=== PATIENT | female | born 1990 | race Two or more races ===

== ENCOUNTER 2017-01-25 08:15 | Emergency (ER) | payer OTHER ==
--- NOTE | 2017-01-25 09:43 | ER Document Report ---
ED General - General Chief Complaint: Allergic Reaction Stated Complaint: POSSIBLE ALLERGIC REACTION Time Seen by Provider: 01/25/17 08:46 Mode of Arrival: Ambulatory Information source: Patient Notes: 26-year-old female presents with complaints of left facial swelling after taking penicillin. Patient notes she was diagnosed with a dental infection of the left upper jaw. Denies any fevers or chills denies any specific tenderness of the facial swelling. Patient has taken 3 doses of penicillin thus far. She denies any history of penicillin allergies in the past TRAVEL OUTSIDE OF THE [place] IN LAST 30 DAYS: No - HPI Onset: Just prior to arrival Onset/Duration: Sudden Quality of pain: No pain Severity: Mild Pain Level: Denies Associated symptoms: Other - Facial swelling Exacerbated by: Denies Relieved by: Denies Similar symptoms previously: No Recently seen / treated by doctor: No - Related Data Allergies/Adverse Reactions: No Known Allergies Allergy (Verified 01/25/17 08:20) Home Medications: Current Home Medications Penicillin V Potassium [Penicillin Vk 500 mg Tablet] 500 mg PO QID 01/25/17 [ History] Past Medical History - Social History Smoking Status: Never Smoker Cigarette use (# per day): No Chew tobacco use (# tins/day): No Smoking Education Provided: No Frequency of alcohol use: None Drug Abuse: None Family History: Reviewed & Not Pertinent Renal/ Medical History: Denies: Hx Peritoneal Dialysis Past Surgical History: Reports: Hx Appendectomy Review of Systems - Review of Systems Notes: REVIEW OF SYSTEMS: CONSTITUTIONAL : Denies fever, chills, or sweats. Denies recent illness. EENT: Left facial swelling CARDIOVASCULAR: Denies chest pain. Denies palpitations or racing or irregular heart beat. Denies ankle edema. RESPIRATORY: Denies cough, cold, or chest congestion. Denies shortness of breath, difficulty breathing, or wheezing. GASTROINTESTINAL: Denies abdominal pain or distention. Denies nausea, vomiting , or diarrhea. Denies blood in vomitus, stools, or per rectum. Denies black, tarry stools. Denies constipation. GENITOURINARY: Denies difficulty urinating, painful urination, burning, frequency, blood in urine, or discharge. FEMALE GENITOURINARY: Denies vaginal bleeding, heavy or abnormal periods, irregular periods. Denies vaginal discharge or odor. MUSCULOSKELETAL: Denies back or neck pain or stiffness. Denies joint pain or swelling. SKIN: Denies rash, lesions or sores. HEMATOLOGIC : Denies easy bruising or bleeding. LYMPHATIC: Denies swollen, enlarged glands. NEUROLOGICAL: Denies confusion or altered mental status. Denies passing out or loss of consciousness. Denies dizziness or lightheadedness. Denies headache. Denies weakness or paralysis or loss of use of either side. Denies problems with gait or speech. Denies sensory loss, numbness, or tingling. Denies seizures. PSYCHIATRIC: Denies anxiety or stress. Denies depression, suicidal ideation, or homicidal ideation. ALL OTHER SYSTEMS REVIEWED AND NEGATIVE. PHYSICAL EXAMINATION: GENERAL: Well-appearing, well-nourished and in no acute distress. HEAD: Mild edema of the left cheek no abscess formation EYES: Pupils equal round and reactive to light, extraocular movements intact, conjunctiva are normal. ENT: Nares patent, oropharynx clear without exudates. Moist mucous membranes. NECK: Normal range of motion, supple without lymphadenopathy LUNGS: Breath sounds clear to auscultation bilaterally and equal. No wheezes rales or rhonchi. HEART: Regular rate and rhythm without murmurs ABDOMEN: Soft, nontender, nondistended abdomen. No guarding, no rebound. No masses appreciated. Female : deferred Musculoskeletal: Normal range of motion, no pitting or edema. No cyanosis. NEUROLOGICAL: Cranial nerves grossly intact. Normal speech, normal gait. Normal sensory, motor exams PSYCH: Normal mood, normal affect. SKIN: Warm, Dry, normal turgor, no rashes or lesions noted. Dictation was performed using [employer] voice recognition software Physical Exam - Vital signs Vitals: Temp Pulse Resp BP Pulse Ox 98.1 F 87 16 129/87 H 100 01/25/17 08:20 01/25/17 08:20 01/25/17 08:20 01/25/17 08:20 01/25/17 08:20 Course - Re-evaluation Re-evalutation: 01/25/17 16:30 Physical examination is consistent with cellulitis secondary to this dental infection. There is no erythema however there is slight edema. Overall the patient looks well is in no distress. There is no formation of an abscess. Patient has been given very strict return precautions as well as considerations for changing antibiotics. Patient states she understands and will return if there is any other concerns After performing a Medical Screening Examination, I estimate there is LOW risk for a DEEP SPACE INFECTION (e.g., FILIBERTO'S ANGINA OR RETROPHARYNGEAL ABSCESS), MENINGITIS, INTRACRANIAL HEMORRHAGE, or AIRWAY COMPROMISE, thus I consider the discharge disposition reasonable. Also, there is no evidence or peritonitis, sepsis, or toxicity. I have reevaluated this patient multiple times and no significant life threatening changes are noted. The patient and I have discussed the diagnosis and risks, and we agree with discharging home with close follow-up with the understanding that symptoms and presentations can change. We also discussed returning to the Emergency Department immediately if new or worsening symptoms occur. We have discussed the symptoms which are most concerning (e.g., changing or worsening pain, trouble swallowing or breathing, neck stiffness or fever) that necessitate immediate return. - Vital Signs Vital signs: Temp Pulse Resp BP Pulse Ox 97.9 F 74 18 128/80 H 95 01/25/17 09:50 01/25/17 09:50 01/25/17 09:50 01/25/17 09:50 01/25/17 09:50 Discharge - Discharge Clinical Impression: Facial edema, Pain, dental Condition: Stable Disposition: HOME, SELF-CARE Instructions: Toothache ([facility]) Additional Instructions: At this time no abscesses noted, you must return immediately if he began having fevers if the swelling worsens or if there is an area that is tender or any other concerns Forms: Return to Work
[2017-01-25 10:00] VITALS: BP 128/80
== END 2017-01-25 10:00 | disposition home or self-care (01) ==
LOC: ER 08:15
DX: R60.0 Localized edema (principal); K04.7 Periapical abscess without sinus; K08.89 Other specified disorders of teeth and supporting structures
CPT/HCPCS: 99283